=== PATIENT | male | born 1990 | race African-American/Black ===

== ENCOUNTER 2020-05-23 18:16 | Emergency (ER) | payer SELFPAY ==
[~2020-05-23] VITALS: Ht 167.6 cm; Wt 114.0 kg
[2020-05-23] MEDS ORDERED: LORAZEPAM 1MG TABLET PO ONE (18:45)
[2020-05-23] MEDS ORDERED: IBUPROFEN 600MG TABLET PO ONE (19:45)
[2020-05-23 23:30] VITALS: BP 122/71
== END 2020-05-23 23:53 | disposition home or self-care (01) ==
LOC: ER 18:16
DX: R07.89 Other chest pain (principal); F12.90 Cannabis use, unspecified, uncomplicated
CPT/HCPCS: 36415; 71045; 84484; 93005; 99285